=== PATIENT | male | born 1995 | race Caucasian/White ===

== ENCOUNTER 2021-01-03 03:03 | Emergency (ER) | payer SELFPAY ==
[~2021-01-03] VITALS: Ht 177.8 cm; Wt 78.0 kg
[2021-01-03] MEDS ORDERED: SODIUM CHLORIDE 0.9% 1,000 ML IV ONE (03:45)
[2021-01-03] MEDS ORDERED: ONDANSETRON HCL 4MG/2ML INJ IV ONE (03:45)
[2021-01-03] MEDS ORDERED: MAGNESIUM/ALUMINUM HYDROXIDE/SIMETHICONE 30ML UDC PO ONE (03:45)
[2021-01-03] MEDS ORDERED: FAMOTIDINE 20MG TABLET PO ONE (03:45)
[2021-01-03] MEDS ORDERED: VISCOUS LIDOCAINE 2% 15 ML UDC MM PRN (03:45)
[2021-01-03 03:51] LABS: BASOPHILS % 0.8 % (0.0-2.0); EOSINOPHILS % 5.1 % (0.0-5.0); HEMATOCRIT. 44.6 % (42.0-52.0); HEMOGLOBIN. 15.7 g/dL (14.0-18.0); LYMPHOCYTES % 30.2 % (20.0-50.0); MEAN CORPUSCULAR HEMOGLOBIN 33.4 pg (28.0-32.0); MEAN CORPUSCULAR VOLUME 94.8 fL (80.0-94.0); MEAN PLATELET VOLUME 7.6 fl (7.4-10.4); MONOCYTES % 4.5 % (2.0-8.0); NEUTROPHILS % 59.4 % (40.0-76.0); PLATELET 240 x1000/uL (130-400); RED CELL DISTRIBUTION WIDTH 12.6 % (11.6-14.6)
[2021-01-03 04:03] LABS: CHLORIDE 106 mEq/L (98-107)
[2021-01-03 06:50] VITALS: BP 139/91
== END 2021-01-03 07:15 | disposition home or self-care (01) ==
LOC: ER 03:03
DX: F10.129 Alcohol abuse with intoxication, unspecified (principal); Y90.8 Blood alcohol level of 240 mg/100 ml or more; R10.32 Left lower quadrant pain; K29.20 Alcoholic gastritis without bleeding
CPT/HCPCS: 36415; 80053; 80320; 83690; 85025; 96361; 96374; 99284; J2405; J7030; G0480

== ENCOUNTER 2021-01-25 23:32 | Emergency (ER) | payer MEDICAID ==
[~2021-01-25] VITALS: Ht 180.3 cm; Wt 80.0 kg
[2021-01-26] MEDS ORDERED: TETANUS, DIPHTHERIA, PERTUSSIS VAC/PF 0.5ML (>7YR OLD) IM ONE (00:45)
[2021-01-26] MEDS ORDERED: LIDOCAINE HCL/EPINEPHRINE 1%-EPI 1:100,000 20 ML VIAL INFIL ONE (00:45)
[2021-01-26] MEDS ORDERED: BACITRACIN ZINC OINT UDPKT TOP ONE (00:45)
[2021-01-26] MEDS ORDERED: BO1 TP (01:25)
[2021-01-26] MEDS ORDERED: T3 PO (01:25)
[2021-01-26] MEDS ORDERED: CEPH500C2 MT (01:25)
[2021-01-26 01:30] VITALS: BP 140/82
[2021-01-26] MEDS ORDERED: ACETAMINOPHEN 325MG TABLET PO ONE (01:30)
== END 2021-01-26 01:45 | disposition home or self-care (01) ==
LOC: ER 23:32
DX: S41.112A Laceration without foreign body of left upper arm, initial encounter (principal); F10.21 Alcohol dependence, in remission; W13.8XXA Fall from, out of or through other building or structure, initial encounter; W26.8XXA Contact with other sharp object(s), not elsewhere classified, initial encounter; Y93.89 Activity, other specified; Y92.89 Other specified places as the place of occurrence of the external cause
CPT/HCPCS: 90471; 90715; 99283; Z7610